=== PATIENT | female | born 1995 | race African-American/Black ===

== ENCOUNTER 2022-02-21 14:20 | Emergency (ER) | payer OTHER, SELFPAY ==
[2022-02-21 14:41] VITALS: BP 122/79; PULSE 84; RESP 17; TEMP 36.6; O2SAT 99; BMI 22.4
[2022-02-21 15:04] LABS: COVID19 -Nasal RAPID Negative (Negative)
[2022-02-21 15:23] LABS: Amorphous Sediment Urine 1+; Bacteria Urine Moderate (10-30); Culture Indicated Urine Specimen Cultured; Mucus Urine 1+ (Negative); RBC Urine None Seen (0-5/HPF); Squamous Epithelial Cell Urine 5-10 /HPF (0-5/HPF); WBC Urine 10-30/HPF (0-5/HPF)
--- NOTE | 2022-02-21 16:16 | ED.NAVMDI ---
HPI - Nausea/Vomiting/Diarrhea <Alex Veloz PA-C - Last Filed: 02/21/22 16:36> General Chief complaint: Nausea/Vomiting/Diarrhea Stated complaint: fever chills x3days Time Seen by Provider: 02/21/22 15:44 Source: patient Mode of arrival: Ambulatory History of Present Illness HPI Narrative: 26-year-old female with no reported past medical history presents to the ED with 3 days of fever, chills, nausea, vomiting, diarrhea. Patient denies chest, shortness of breath, abdominal pain, flank pain, dysuria, urinary frequency, urinary urgency, lightheadedness, dizziness, syncope. Patient states that she took a home test that was positive. Patient states that her last menstrual period was in December, however she had some spotting on February 03. Related Data Previous Rx's Medication Instructions Recorded cefpodoxime 200 mg tablet 200 mg PO BID 5 days #10 tabs 02/21/22 cefpodoxime 200 mg tablet 200 mg PO Q12H 5 days #10 tabs 02/21/22 ondansetron 4 mg disintegrating 4 mg PO Q8H PRN nausea and 02/21/22 tablet vomiting #14 tabs Allergies Allergy/AdvReac Type Severity Reaction Status Date / Time No Known Drug Allergies Allergy Verified 02/21/22 14:43 Review of Systems <Alex Veloz PA-C - Last Filed: 02/21/22 16:36> Review of Systems ROS Unobtainable: All systems reviewed & are unremarkable except as noted in HPI and below Constitutional Constitutional: Reports chills, Denies fatigue, Reports fever(s), Denies frequent falls, Denies lethargy and Denies weakness Eyes Eyes: Denies change in vision, Denies eye discharge, Denies irritation and Denies loss of vision ENT Ears, Nose, Mouth, and Throat: Denies change in voice, Denies dizziness, Denies neck pain, Denies sore throat and Denies throat swelling Cardiovascular Cardiovascular: Denies chest pain, Denies irregular heart rhythm, Denies lightheadedness, Denies palpitations, Denies dyspnea, Denies dyspnea on exertion and Denies orthopnea Respiratory Respiratory: Denies cough, Denies dyspnea, Denies dyspnea on exertion and Denies wheezing Gastrointestinal Gastrointestinal: Denies abdominal pain, Denies change in bowel habits, Denies diarrhea, Reports nausea and Reports vomiting Genitourinary Genitourinary: Denies hematuria, Denies flank pain, Denies urinary incontinence and Denies urinary urgency Musculoskeletal Musculoskeletal: Denies back pain, Denies muscle weakness, Denies neck pain, Denies numbness and Denies tingling Integumentary/Breasts Skin/Breast: Denies pruritus, Denies erythema, Denies rash and Denies wounds Neurologic Neurologic: Denies behavioral changes, Denies confusion, Denies dizziness, Denies frequent falls, Denies loss of vision, Denies numbness, Denies tingling and Denies weakness Psychiatric Psychiatric: Denies anxiety, Denies behavioral changes, Denies confusion, Denies depression, Denies homicidal ideation and Denies suicidal ideation Endocrine Endocrine: Denies fatigue, Denies flushing and Denies palpitations Hematologic/Lymphatic Hematologic/Lymphatic: Denies easy bruising Allergic/Immunologic Allergic/Immunologic: Denies urticaria, Denies throat swelling and Denies wheezing Patient History <Alex Veloz PA-C - Last Filed: 02/21/22 16:36> Social History Smoking Status: Never smoker Smoking Status: Never smoker alcohol intake frequency: other Substance Use Type: does not use Exam <Alex Veloz PA-C - Last Filed: 02/21/22 16:36> Narrative Exam Narrative: Const General:?cooperative, healthy appearing and comfortable [facility] Head:?normal to inspection Ears:?hearing grossly normal bilaterally Nose:?external nose normal Face and sinus:?normal facial exam and sinuses nontender Mouth:?oral mucosae normal Throat:?posterior oropharynx normal Eyes General:?appearance normal, both eyes and all related structures Neck Neck:?normal visual inspection and no lymphadenopathy noted Resp Effort & Inspection:?normal respiratory effort Auscultation:?clear to auscultation bilaterally Cardio Rate:?regular rate Rhythm:?regular rhythm GI Abdomen is soft, nondistended, nontender to palpation. Mild right-sided CVA tenderness. Neuro General:?patient alert, patient awake and patient oriented x3 Initial Vital Signs Initial Vital Signs: Vital Signs Temperature 97.9 F 02/21/22 14:41 Pulse Rate 84 02/21/22 14:41 Respiratory Rate 17 02/21/22 14:41 Blood Pressure 122/79 02/21/22 14:41 Pulse Oximetry 99 02/21/22 14:41 Oxygen Delivery Method 02/21/22 14:41 <DO Nubia Verduzco Last Filed: 02/21/22 18:05> Initial Vital Signs Initial Vital Signs: Vital Signs Temperature 97.9 F 02/21/22 14:41 Pulse Rate 84 02/21/22 14:41 Respiratory Rate 17 02/21/22 14:41 Blood Pressure 122/79 02/21/22 14:41 Pulse Oximetry 99 02/21/22 14:41 Oxygen Delivery Method 02/21/22 14:41 Course <Alex Veloz PA-C - Last Filed: 02/21/22 16:36> Orders Ordered: ED Orders 02/21/22 14:40 COVID19 -Nasal RAPID/Pre-Proc Stat 02/21/22 14:45 Urine Culture Stat Urine Microscopic Stat Discontinued Medications Ondansetron HCl (Ondansetron 4 Mg Odt) 4 mg SL NOW ONE Stop: 02/21/22 16:53 Last Admin: 02/21/22 16:56 Dose: 4 mg Documented By: MAAME Vital Signs Vital signs: Vital Signs - 8 hr 02/21/22 14:41 02/21/22 16:56 Temperature 97.9 F 97.7 F Pulse Rate 84 85 Respiratory Rate 17 19 Blood Pressure 122/79 123/73 Pulse Oximetry 99 100 Oxygen Delivery Method Room Air Room Air <DO Nubia Verduzco Last Filed: 02/21/22 18:05> Orders Ordered: ED Orders 02/21/22 14:40 COVID19 -Nasal RAPID/Pre-Proc Stat 02/21/22 14:45 Urine Culture Stat Urine Microscopic Stat Discontinued Medications Ondansetron HCl (Ondansetron 4 Mg Odt) 4 mg SL NOW ONE Stop: 02/21/22 16:53 Last Admin: 02/21/22 16:56 Dose: 4 mg Documented By: JG Vital Signs Vital signs: Vital Signs - 8 hr 02/21/22 14:41 02/21/22 16:56 Temperature 97.9 F 97.7 F Pulse Rate 84 85 Respiratory Rate 17 19 Blood Pressure 122/79 123/73 Pulse Oximetry 99 100 Oxygen Delivery Method Room Air Room Air MDM - Nausea/Vomiting/Diarrhea <CRISTIAN Monk Last Filed: 02/21/22 16:36> Lab Data Attestation: I reviewed the patient's lab results. Labs: Lab Results 02/21/22 02/21/22 Range/Units 14:40 14:45 Urine RBC None seen (0-5/HPF) Urine WBC 10-30/hpf H (0-5/HPF) Ur Squamous Epith Cells 5-10 /hpf H (0-5/HPF) Amorphous Sediment 1+ Urine Bacteria Moderate (10-30) H (None) Urine Mucus 1+ H (Negative) Ur Culture Indicated? Specimen cultured SARS-CoV-2 (PCR) Negative (Negative) Point of Care Testing Test Results Positive Urine Dip Bedside Urine Glucose Negative Bedside Urine Bilirubin - Negative Bedside Urine Ketone - Negative Urine Specific [place] 1.01 Bedside Urine Occult Blood - Negative Bedside Urine pH 6.0 Bedside Urine Protein - Negative Bedside Urine Urobilinogen - Negative Bedside Urine Nitrite - Negative Bedside Urine Leukocytes ++ 125 Esterase MDM Narrative Medical decision making narrative: 26-year-old female with no reported past medical history presents to the ED with 3 days of fever, chills, nausea, vomiting, diarrhea. Urine is positive for a UTI, positive for . Will treat with cefpodoxime for 5 days. Recommend Tylenol, ibuprofen for fever. Patient agrees to follow-up with the english composition teacher a sap. ED return precautions discussed with patient. Patient verbalized understanding. <Titi Issa DO - Last Filed: 02/21/22 18:05> Lab Data Labs: Lab Results 02/21/22 02/21/22 Range/Units 14:40 14:45 Urine RBC None seen (0-5/HPF) Urine WBC 10-30/hpf H (0-5/HPF) Ur Squamous Epith Cells 5-10 /hpf H (0-5/HPF) Amorphous Sediment 1+ Urine Bacteria Moderate (10-30) H (None) Urine Mucus 1+ H (Negative) Ur Culture Indicated? Specimen cultured SARS-CoV-2 (PCR) Negative (Negative) Point of Care Testing Test Results Positive Urine Dip Bedside Urine Glucose Negative Bedside Urine Bilirubin - Negative Bedside Urine Ketone - Negative Urine Specific [place] 1.01 Bedside Urine Occult Blood - Negative Bedside Urine pH 6.0 Bedside Urine Protein - Negative Bedside Urine Urobilinogen - Negative Bedside Urine Nitrite - Negative Bedside Urine Leukocytes ++ 125 Esterase Discharge Plan Departure Patient Disposition: Home Clinical Impression: Pyelonephritis Instructions: DI for Urinary Tract Infection (UTI) Prescriptions: New cefpodoxime 200 mg tablet 200 mg PO BID 5 Days Qty: 10 0RF Rx Instructions: must administer with a meal/food cefpodoxime 200 mg tablet 200 mg PO Q12H 5 Days Qty: 10 0RF Rx Instructions: must administer with a meal/food ondansetron 4 mg tablet,disintegrating 4 mg PO Q8H PRN (Reason: nausea and vomiting) Qty: 14 0RF Referrals: Provider,Evonne SAUER [Primary Care Provider] - Stand Alone Forms: Work Release Note Visit Report Forms: Patient Portal/API <Titi Issa, - Last Filed: 02/21/22 18:05> Cosign ED Attending Cosmanature Attestation: Dr Issa Co-Sign Statement: I was available for consultation during this patient's emergency department visit. This chart is signed by myself for administrative purposes only. I did not have direct contact with this patient during this visit. They were seen independently by the APC.
[2022-02-21 16:56] VITALS: BP 123/73; PULSE 85; RESP 19; TEMP 36.5; O2SAT 100
[2022-02-21] MEDS: ONDANSETRON 4 MG ODT SL (16:56)
== END 2022-02-21 16:58 | disposition home or self-care (01) ==
PROVIDERS: Emergency Medicine; Emergency Provider Student in an Organized Health Care Education/Training Program
DX: N12 Tubulo-interstitial nephritis, not specified as acute or chronic (principal); R11.2 Nausea with vomiting, unspecified; Z33.1 Pregnant state, incidental; Z20.822 Contact with and (suspected) exposure to COVID-19
CPT/HCPCS: 81003; 81015; 81025; 87086; 87635; 99283; C9803

== ENCOUNTER → 2022-03-15 09:30 | Outpatient (CLI) | payer OTHER, SELFPAY ==
[2022-03-15 13:15] LABS: HCG Quantitative /Beta subunit 3918.7 mIU/mL
== END ==
PROVIDERS: Referring Provider Family Medicine; Visit Provider Family Medicine
DX: O20.9 Hemorrhage in early pregnancy, unspecified (principal)
CPT/HCPCS: 36415; 84702

== ENCOUNTER → 2022-03-18 09:42 | Outpatient (CLI) | payer OTHER, SELFPAY ==
[2022-03-18 11:40] LABS: HCG Quantitative /Beta subunit 2222.3 mIU/mL
== END ==
PROVIDERS: Referring Provider Family Medicine; Visit Provider Family Medicine
DX: O20.9 Hemorrhage in early pregnancy, unspecified (principal)
CPT/HCPCS: 36415; 84702

== ENCOUNTER → 2022-03-25 10:45 | Outpatient (CLI) | payer OTHER, SELFPAY ==
[2022-03-25 13:49] LABS: HCG Quantitative /Beta subunit 556.7 mIU/mL
== END ==
PROVIDERS: Referring Provider Family Medicine; Visit Provider Family Medicine
DX: O03.9 Complete or unspecified spontaneous abortion without complication (principal)
CPT/HCPCS: 36415; 84702

== ENCOUNTER → 2022-04-15 12:00 | Outpatient (CLI) | payer OTHER, SELFPAY ==
[2022-04-15 13:20] LABS: HCG Quantitative /Beta subunit 30.3 mIU/mL
== END ==
PROVIDERS: Referring Provider Family Medicine; Visit Provider Family Medicine
DX: O03.9 Complete or unspecified spontaneous abortion without complication (principal)
CPT/HCPCS: 36415; 84702